=== PATIENT | female | born 2000 | race Caucasian/White ===

== ENCOUNTER 2021-10-06 09:18 | Emergency (ER) | payer OTHER ==
[~2021-10-06] VITALS: Ht 152.4 cm; Wt 54.4 kg
[2021-10-06 09:24] VITALS: BP 130/75
--- NOTE | 2021-10-06 09:45 | NUR ---
SEEN AND EXAMINED BY .
[2021-10-06] MEDS ORDERED: IPRATROPIUM NEB FS 0.5 MG/2.5 ML AMPUL.NEB ONE (09:52)
[2021-10-06] MEDS ORDERED: ALBUTEROL FS 2.5 MG/3 ML VIAL.NEB ONE (09:52)
[2021-10-06] MEDS ORDERED: predniSONE 20 MG TABLET PO ONE (10:00)
[2021-10-06] MEDS ORDERED: ALBUTEROL FS 2.5 MG/3 ML VIAL.NEB NEB ONE (10:00)
[2021-10-06] MEDS ORDERED: IPRATROPIUM NEB FS 0.5 MG/2.5 ML AMPUL.NEB NEB ONE (10:00)
[2021-10-06] MEDS ORDERED: predniSONE 20 MG TABLET ONE (10:28)
[2021-10-06] MEDS ORDERED: PRED50TA PO (11:14)
--- NOTE | 2021-10-06 11:29 | NUR ---
Patient discharged to home in stable condition. Written and verbal after care instructions given. Patient verbalizes understanding of instruction.
== END 2021-10-06 11:31 | disposition home or self-care (01) ==
LOC: ER 09:26
DX: J45.901 Unspecified asthma with (acute) exacerbation (principal); Z88.0 Allergy status to penicillin; Z88.1 Allergy status to other antibiotic agents; Z79.899 Other long term (current) drug therapy
CPT/HCPCS: 94640 ×2; 99285; J7512

== ENCOUNTER 2022-03-20 22:48 | Emergency (ER) | payer OTHER ==
[~2022-03-20] VITALS: Ht 152.4 cm; Wt 47.6 kg
[~2022-03-20 22:48] MED LIST: PRED50TA PO
--- NOTE | 2022-03-20 22:54 | NUR ---
BIBS FOR ASTHMA EXACERBATION UNRELIEVED BY INHALER. +WHEEZING. PT A/OX4. TOLERATING R/A AT 96% WITH BILATERAL WHEEZING. CONNECTED PT TO POX AND MONITOR.
--- NOTE | 2022-03-20 22:59 | NUR ---
PT SATTING 94% ON R/A; AUDIBLE WHEEZES HEARD
[2022-03-20] MEDS ORDERED: ALBUTEROL FS 2.5 MG/0.5 ML VIAL.NEB NEB ONE (23:00)
[2022-03-20] MEDS ORDERED: ALBUTEROL FS 2.5 MG/0.5 ML VIAL.NEB ONE (23:02)
--- NOTE | 2022-03-20 23:06 | NUR ---
RT AT PT'S BEDSIDE FOR BREATHING TX
[2022-03-20] MEDS ORDERED: IPRATROPIUM NEB FS 0.5 MG/2.5 ML AMPUL.NEB ONE (23:10)
--- NOTE | 2022-03-20 23:22 | NUR ---
PT FEELING BETTER AFTER BREATHING TX
[2022-03-20] MEDS ORDERED: IPRATROPIUM NEB FS 0.5 MG/2.5 ML AMPUL.NEB NEB ONE (23:30)
[2022-03-20] MEDS ORDERED: DEXAMETHASONE SOD PHOSPHATE 4 MG/ML VIAL IM ONE (23:30)
[2022-03-20] MEDS ORDERED: DEXAMETHASONE SOD PHOSPHATE 4 MG/ML VIAL ONE (23:32)
[2022-03-21] MEDS ORDERED: PRED50TA PO (00:18)
--- NOTE | 2022-03-21 00:24 | NUR ---
Patient discharged to home in stable condition. Written and verbal after care instructions given. Patient verbalizes understanding of instruction. PT ambulatory with a steady gait
[2022-03-21 00:26] VITALS: BP 111/68
== END 2022-03-21 00:26 | disposition home or self-care (01) ==
LOC: ER 22:57
DX: J45.901 Unspecified asthma with (acute) exacerbation (principal); Z88.0 Allergy status to penicillin; Z88.1 Allergy status to other antibiotic agents; Z79.899 Other long term (current) drug therapy
CPT/HCPCS: 94640; 96372; 99283; J1100

== ENCOUNTER 2023-12-19 02:51 | Emergency (ER) | payer SELFPAY ==
[~2023-12-19] VITALS: Ht 152.4 cm; Wt 56.7 kg
[2023-12-19] MEDS ORDERED: predniSONE 20 MG TABLET ONE (03:40)
[2023-12-19] MEDS: predniSONE 20 MG TABLET PO ONE (03:42)
[2023-12-19] MEDS ORDERED: ALBUTEROL FS 2.5 MG/3 ML VIAL.NEB ONE (03:50)
[2023-12-19] MEDS ORDERED: IPRATROPIUM NEB FS 0.5 MG/2.5 ML AMPUL.NEB ONE (03:50)
[2023-12-19 03:56] VITALS: O2SAT 97
[2023-12-19] MEDS: ALBUTEROL FS 2.5 MG/3 ML VIAL.NEB CONTNEB ONE (03:56)
[2023-12-19] MEDS: IPRATROPIUM NEB FS 0.5 MG/2.5 ML AMPUL.NEB NEB ONE (03:56)
[2023-12-19 04:56] VITALS: O2SAT 100
[2023-12-19] MEDS ORDERED: ALBU18HF2 INH (06:01)
[2023-12-19] MEDS ORDERED: PRED50TA PO (06:01)
[2023-12-19 06:07] VITALS: BP 104/68; TEMP 97.9; O2SAT 100
== END 2023-12-19 06:08 | disposition home or self-care (01) ==
LOC: ER 02:53
DX: J45.901 Unspecified asthma with (acute) exacerbation (principal); Z88.0 Allergy status to penicillin; Z88.8 Allergy status to other drugs, medicaments and biological substances
CPT/HCPCS: 99285; 94644; J7512